=== PATIENT | female | born 1990 | race Caucasian/White ===

== ENCOUNTER → 2018-08-27 | Outpatient (CLI) | payer OTHER, MEDICAID ==
[~2018-08-27] MED LIST: BACTRIM DS TAB1 EACH PO; BENTYL 20 MG TA20 M1 PO; BUSPIRONE HCL10 MG PO; CLONAZEPAM 1 MG1 M1 PO; IBUPROFEN 800800 MG PO; LAMICTAL200 MG PO; NORFLEX100 MG PO; ONDANSETRON HCL4 M2 PO; PERCOCET 7.5-31 EACH PO; PHENERGAN 25 MG25 M1 PO; TRI-SPRINTEC1 EACH; VIBERZI100 MG PO
[2018-08-27 09:46] LABS: ABSOLUTE BASOPHILS 0.1 thou/uL (0.0-0.2); ABSOLUTE EOSINOPHILS 0.3 thou/uL (0.0-0.7); ABSOLUTE LYMPHOCYTES 2.8 thou/uL (0.8-5.3); ABSOLUTE MONOCYTES 0.7 thou/uL (0.0-1.2); ABSOLUTE NEUTROPHILS 6.8 thou/uL (1.6-8.1); BASOPHILS 0.5 %; EOSINOPHILS 2.5 %; HEMATOCRIT 39.9 % (37.0-47.0); HEMOGLOBIN 13.8 gm/dL (12.0-15.0); LYMPHOCYTES 26.4 %; MCH 28.3 pg (26.0-34.0); MCHC 34.5 g/dL (28.0-37.0); MCV 81.9 fL (80.0-100.0); MONOCYTES 6.3 %; MPV 8.2 fl. (7.2-11.1); NUCLEATED RBCS 0 /100WBC; PLATELET COUNT* 236 thou/uL (150-400); POLYS 64.3 %; RBC 4.87 mil/uL (4.20-5.00); RDW-CV 13.9 % (10.5-14.5); WBC 10.6 thou/uL (4.0-11.0)
[2018-08-27 10:15] LABS: ALBUMIN 3.6 g/dL (3.4-5.0); CALCIUM 8.9 mg/dL (8.5-10.1); CREATININE 0.8 mg/dL (0.6-1.3); TOTAL BILIRUBIN 0.4 mg/dL (<0.1-1.0); TOTAL PROTEIN 6.6 g/dL (6.4-8.2)
== END ==
LOC: M.LAB 09:26
PROVIDERS: Physician Assistant
DX: R10.9 Unspecified abdominal pain (principal); R19.7 Diarrhea, unspecified

== ENCOUNTER 2019-06-28 23:32 | Emergency (ER) | payer OTHER ==
[~2019-06-28] VITALS: Ht 175.3 cm; Wt 110.2 kg
[2019-06-28] MEDS ORDERED: LATUDA80 MG PO (23:40)
[2019-06-28] MEDS ORDERED: FLEXERIL PO (23:40)
[2019-06-29 00:36] LABS: INFLUENZA A ANTIGEN Negative (Negative); INFLUENZA B ANTIGEN Negative (Negative)
[2019-06-29] MEDS ORDERED: AMOXICILLIN 50500 M1 PO (00:44)
[2019-06-29 01:00] VITALS: BP 122/69
--- NOTE | 2019-07-01 13:56 | EKG ---
[place] [address] ELECTROCARDIOGRAM REPORT Name: ALISTAIR JANETHSURJITMARKEL JO Room: [facility]#: [id number] Admission: 06/28/19 Attend Phys: Discharge: 06/29/19 Date of : 89 Date of Service: 06/28/19 2336 Report #: [id number] THIS REPORT FOR: cc: Wood Whitehead MD, David L. MD Holkins, John M. MD [facility] ~ THIS REPORT FOR: //name// [facility] ED Test Date: 2019-06-28 Test Time: 23:36:42 Pat Name: MARKEL FOWLER Department: Room: Gender: F Purchasing Specialist: [place] : 1990 Requested By: Renee Lutz Order Number: [id number] Reading MD: Gene Diego Measurements Intervals [place] Rate: 75 P: 15 [place]: 149 QRS: 50 QRSD: 99 T: -13 QT: 411 QTc: 460 Interpretive Statements Sinus rhythm Borderline T abnormalities, inferior leads No previous ECG available for comparison Electronically Signed On 06-29-2019 16:10:23 LAST SAWYER by Gene Diego [email or web address] <ELECTRONICALLY SIGNED> By: Gene Diego MD, FACC 06/29/19 1610 2336 [id number] Gene Diego MD, FAC /EPI
== END 2019-06-29 01:00 | disposition home or self-care (01) ==
LOC: M.ERS 23:32
PROVIDERS: Emergency Medicine
DX: J02.9 Acute pharyngitis, unspecified (principal); F41.9 Anxiety disorder, unspecified; F31.9 Bipolar disorder, unspecified; Z88.5 Allergy status to narcotic agent; Z88.6 Allergy status to analgesic agent

== ENCOUNTER → 2019-09-10 | Day surgery (SDC) | payer OTHER ==
[~2019-09-10] MED LIST changes: +AMOXICILLIN 50500 M1 PO; +FLEXERIL PO; +LATUDA80 MG PO
[2019-09-10 09:05] LABS: HEMATOCRIT 40.2 % (37.0-47.0); HEMOGLOBIN 14.1 gm/dL (12.0-15.0)
[2019-09-10 11:17] LABS: ABSOLUTE BASOPHILS 0.1 thou/uL (0.0-0.2); ABSOLUTE EOSINOPHILS 0.2 thou/uL (0.0-0.7); ABSOLUTE LYMPHOCYTES 2.8 thou/uL (0.8-5.3); ABSOLUTE MONOCYTES 0.5 thou/uL (0.0-1.2); ABSOLUTE NEUTROPHILS 7.2 thou/uL (1.6-8.1); HEMATOCRIT 38.1 % (37.0-47.0); HEMOGLOBIN 13.5 gm/dL (12.0-15.0); LYMPHOCYTES 25.9 %; MCH 28.7 pg (26.0-34.0); MCHC 35.4 g/dL (28.0-37.0); MCV 81.1 fL (80.0-100.0); MONOCYTES 4.3 %; MPV 8.2 fl. (7.2-11.1); NUCLEATED RBCS 0 /100WBC; PLATELET COUNT* 267 thou/uL (150-400); POLYS 66.8 %; RDW-CV 14.1 % (10.5-14.5); WBC 10.8 thou/uL (4.0-11.0)
[2019-09-10 11:32] LABS: CALCIUM 8.2 mg/dL (8.5-10.1); CREATININE 0.9 mg/dL (0.6-1.3); POTASSIUM 3.9 mmol/L (3.5-5.1)
[2019-09-10 11:37] LABS: ALBUMIN 3.4 g/dL (3.4-5.0); TOTAL BILIRUBIN 0.3 mg/dL (<0.1-1.0); TOTAL PROTEIN 6.9 g/dL (6.4-8.2)
== END | disposition home or self-care (01) ==
LOC: M.SUR 08:32
PROVIDERS: Internal Medicine Gastroenterology
DX: R10.13 Epigastric pain (principal); K21.9 Gastro-esophageal reflux disease without esophagitis; G47.30 Sleep apnea, unspecified; G43.909 Migraine, unspecified, not intractable, without status migrainosus; F32.9 Major depressive disorder, single episode, unspecified; F41.9 Anxiety disorder, unspecified; Z98.890 Other specified postprocedural states; Z79.899 Other long term (current) drug therapy; Z90.49 Acquired absence of other specified parts of digestive tract

== ENCOUNTER 2020-06-11 15:05 | Emergency (ER) | payer OTHER ==
[~2020-06-11] VITALS: Ht 177.8 cm; Wt 111.1 kg
[2020-06-11] MEDS ORDERED: KEFLEX500 M1 PO (15:15)
[2020-06-11] MEDS ORDERED: MEDROLDOSEPACK PO (15:48)
[2020-06-11] MEDS ORDERED: PROAIR HFA8.5 GM INH (15:48)
[2020-06-11] MEDS ORDERED: APAP W/CODEINE1 TA2 PO (15:48)
[2020-06-11 16:00] VITALS: BP 124/79
== END 2020-06-11 16:01 | disposition home or self-care (01) ==
LOC: M.ERS 15:05
DX: J06.9 Acute upper respiratory infection, unspecified (principal); Z79.899 Other long term (current) drug therapy; Z88.5 Allergy status to narcotic agent; Z88.8 Allergy status to other drugs, medicaments and biological substances; Z20.828 Contact with and (suspected) exposure to other viral communicable diseases

== ENCOUNTER 2020-07-29 20:59 | Emergency (ER) | payer OTHER ==
[~2020-07-29] VITALS: Ht 177.8 cm; Wt 111.1 kg
[~2020-07-29 20:59] MED LIST changes: +APAP W/CODEINE1 TA2 PO; +KEFLEX500 M1 PO; +MEDROLDOSEPACK PO; +PROAIR HFA8.5 GM INH
[2020-07-29 21:12] VITALS: BP 138/80
[2020-07-29 21:18] LABS: URINE BILIRUBIN NEGATIVE (Negative); URINE BLOOD NEGATIVE (Negative); URINE CLARITY HAZY; URINE COLOR YELLOW; URINE GLUCOSE-RANDOM NEGATIVE (Negative); URINE KETONES NEGATIVE (Negative); URINE LEUKOCYTES-REFLEX 2+ (Negative); URINE NITRITE-REFLEX NEGATIVE (Negative); URINE PROTEIN NEGATIVE (Negative); URINE UROBILINOGEN 0.2 E.U./dl (0.2-1.0)
[2020-07-29] MEDS ORDERED: BACTRIM DS TAB1 EACH PO (21:21)
[2020-07-29] MEDS ORDERED: PERCOCET 5-3251 EACH PO (21:21)
[2020-07-29] MEDS ORDERED: MEDROLDOSEPACK PO (21:22)
[2020-07-29] MEDS ORDERED: FLEXERIL PO (21:22)
[2020-07-29 21:31] LABS: CASTS None Seen /LPF (None Seen); SQUAMOUS >10 Many /LPF (0-3); URINE RBC None Seen /HPF (0-2); URINE WBC-REFLEX 6-15 Few /HPF (0-5)
[2020-07-29 21:32] LABS: CRYSTALS None Seen /LPF (None Seen)
== END 2020-07-29 21:29 | disposition home or self-care (01) ==
LOC: M.ERS 20:59
PROVIDERS: Emergency Medicine
DX: N39.0 Urinary tract infection, site not specified (principal); Z88.5 Allergy status to narcotic agent; Z88.6 Allergy status to analgesic agent; K58.9 Irritable bowel syndrome, unspecified

== ENCOUNTER 2021-01-16 14:11 | Emergency (ER) | payer OTHER, MEDICAID ==
[~2021-01-16] VITALS: Ht 170.2 cm; Wt 99.8 kg
[~2021-01-16 14:11] MED LIST changes: +PERCOCET 5-3251 EACH PO
[2021-01-16] MEDS ORDERED: MOBIC7.5 MG PO (15:29)
[2021-01-16 15:34] VITALS: BP 140/70
== END 2021-01-16 15:57 | disposition home or self-care (01) ==
LOC: M.ERS 14:11
DX: S90.31XA Contusion of right foot, initial encounter (principal); F41.9 Anxiety disorder, unspecified; F31.9 Bipolar disorder, unspecified; Z79.899 Other long term (current) drug therapy; Z88.6 Allergy status to analgesic agent; W22.8XXA Striking against or struck by other objects, initial encounter; Y93.89 Activity, other specified; Y92.89 Other specified places as the place of occurrence of the external cause; Y99.8 Other external cause status

== ENCOUNTER 2021-01-21 23:17 | Emergency (ER) | payer OTHER, MEDICAID ==
[~2021-01-21] VITALS: Ht 170.2 cm; Wt 99.8 kg
[~2021-01-21 23:17] MED LIST changes: +MOBIC7.5 MG PO
[2021-01-22 00:54] VITALS: BP 121/86
== END 2021-01-22 00:54 | disposition home or self-care (01) ==
LOC: M.ERS 23:17
DX: G43.909 Migraine, unspecified, not intractable, without status migrainosus (principal); F41.9 Anxiety disorder, unspecified; Z88.5 Allergy status to narcotic agent; Z88.6 Allergy status to analgesic agent